=== PATIENT | male | born 1975 | race Caucasian/White ===

== ENCOUNTER 2022-07-14 20:25 | Outpatient (CLI) | payer BC, SELFPAY ==
--- NOTE | 2022-07-20 12:20 | P.SLS_ITS ---
Sleep Study Details Details Interpreting Provider: Jaxson Garcia MD Date of Sleep Study: 07/14/22 Sleep Study Details: STUDY TYPE:? Hospital ? BMI:? [] ORDERING PROVIDER:? 22.6 INDICATION:? Concerns about sleep apnea ? SLEEP SUMMARY:? Sleep time 344, efficiency 78.8, latency 11, REM latency 237.5. Arousal index 8 RESPIRATORY SUMMARY:? Mean oxygen awake 96 asleep 96, minimum 89. AHI 0.9, RDI 5.9. Supine RDI 9.6, nonsupine RDI 0.4. REM AHI 0 in all positions PERIODIC LIMB MOVEMENTS OF SLEEP:? None CARDIAC:? Awake 58, asleep 50. No arrhythmias noted IMPRESSION:? Very mild obstructive sleep apnea. The overall AHI is within normal limits at 0.9. However the RDI is elevated at 5.9 and is much worse in the supine position. RECOMMENDATION: Treatment would depend on patient's symptoms. Patient is very symptomatic treatment could consist of either AutoSet CPAP at a pressure of 4- 17, positional therapy, dental appliance.
== END 2022-07-14 20:26 | disposition home or self-care (01) ==
LOC: SLEEP 20:25
PROVIDERS: PCP Family Medicine; Visit Provider Family Medicine
DX: G47.33 Obstructive sleep apnea (adult) (pediatric) (principal)
CPT/HCPCS: 95810

== ENCOUNTER 2023-09-19 08:29 | Outpatient (CLI) | payer OTHER, SELFPAY | END 2023-09-19 08:30 | disposition home or self-care (01) | LOC: NFLDREF 09-21 10:40 | PROVIDERS: PCP Family Medicine; Referring Provider Family Medicine; Visit Provider Family Medicine | DX: Z00.00 Encounter for general adult medical examination without abnormal findings (principal); E78.5 Hyperlipidemia, unspecified; Z12.5 Encounter for screening for malignant neoplasm of prostate; Z13.1 Encounter for screening for diabetes mellitus | CPT/HCPCS: 80053; 80061; 84153 ==

== ENCOUNTER 2023-10-12 12:53 | Outpatient (CLI) | payer OTHER, SELFPAY ==
--- NOTE | 2023-10-12 13:00 | CRLHL7_ITS ---
For Patients: As a result of the Century Cures Act, medical imaging exams and procedure reports are released immediately into your electronic medical record. You may view this report before your referring provider. If you have questions, please contact your health care provider. Indication: Hydrocele. Technique: Ultrasound of the scrotum and contents. Sonographic rivera-scale images were obtained with spectral and color Doppler waveform and spectral waveform analysis of the testicles. Comparison: None. Findings: Bother testicles are normal in size and echotexture. No masses. No suspicious calcifications. Arterial and venous color Doppler blood flow and spectral waveforms are present in both testicles. Epididymis: Right epididymis is not visualized. Unremarkable left epididymis. Other: Large bilateral complex septated hydroceles. No sign of varicocele. Scrotal wall is normal. Impression: Large bilateral complex septated hydroceles of uncertain etiology. Remainder the exam is unremarkable. Dictated by Curly Boyer MD @ 10/14/2023 8:31:05 AM (Electronically Signed)
== END 2023-10-12 12:54 | disposition home or self-care (01) ==
PROVIDERS: PCP Family Medicine; Visit Provider Family Medicine
DX: N43.3 Hydrocele, unspecified (principal)
CPT/HCPCS: 76870; 93976

== ENCOUNTER 2024-12-28 07:37 | Outpatient (CLI) | payer BC, SELFPAY | END 2024-12-28 07:38 | disposition home or self-care (01) | LOC: NFLDREF 12-29 03:24 | PROVIDERS: PCP Family Medicine; Referring Provider Family Medicine; Visit Provider Family Medicine | DX: Z13.1 Encounter for screening for diabetes mellitus (principal); Z12.5 Encounter for screening for malignant neoplasm of prostate; Z13.6 Encounter for screening for cardiovascular disorders | CPT/HCPCS: 80053; 80061; G0103 ==

== ENCOUNTER 2025-03-29 08:12 | Outpatient (CLI) | payer BC, SELFPAY | END 2025-03-29 08:13 | disposition home or self-care (01) | LOC: NFLDREF 04-05 00:21 | PROVIDERS: PCP Family Medicine; Referring Provider Family Medicine; Visit Provider Family Medicine | DX: E78.5 Hyperlipidemia, unspecified (principal) | CPT/HCPCS: 80061; 80076 ==